=== PATIENT | female | born 1955 | race Caucasian/White ===

== ENCOUNTER → 2020-10-05 16:43 | Outpatient (BNVA) | payer OTHER, SELFPAY | PROVIDERS: Visit Provider Family Medicine | DX: N95.1 Menopausal and female climacteric states (principal); E78.5 Hyperlipidemia, unspecified; I10 Essential (primary) hypertension; K21.9 Gastro-esophageal reflux disease without esophagitis; R53.83 Other fatigue; M81.0 Age-related osteoporosis without current pathological fracture; E78.2 Mixed hyperlipidemia; R53.82 Chronic fatigue, unspecified; Z76.89 Persons encountering health services in other specified circumstances | CPT/HCPCS: 80053; 80061; 82607; 82652; 83615; 83735; 84443; 85007; 85025; 85027 ==

== ENCOUNTER → 2020-10-06 18:28 | Outpatient (BNVA) | payer OTHER, SELFPAY | PROVIDERS: Visit Provider Family Medicine | DX: N95.1 Menopausal and female climacteric states (principal); E78.5 Hyperlipidemia, unspecified; I10 Essential (primary) hypertension; K21.9 Gastro-esophageal reflux disease without esophagitis; M81.0 Age-related osteoporosis without current pathological fracture; Z83.2 Family history of diseases of the blood and blood-forming organs and certain disorders involving the immune mechanism; M79.7 Fibromyalgia; E78.2 Mixed hyperlipidemia; R53.82 Chronic fatigue, unspecified; Z76.89 Persons encountering health services in other specified circumstances | CPT/HCPCS: 80500 ==

== ENCOUNTER → 2021-06-15 10:44 | Outpatient (BNVA) | payer MEDICARE, OTHER, SELFPAY | PROVIDERS: PCP Family Medicine; Visit Provider Family Medicine | DX: I10 Essential (primary) hypertension (principal); E78.5 Hyperlipidemia, unspecified | CPT/HCPCS: 80053; 80061 ==